=== PATIENT | male | born 1965 | race Caucasian/White ===

== ENCOUNTER 2017-06-11 20:35 | Observation (INO) | payer OTHER ==
[~2017-06-11] VITALS: Ht 182.9 cm; Wt 103.4 kg
[2017-06-11 20:52] VITALS: BP 138/71; PULSE 101; RESP 12; TEMP 98.7; O2SAT 95
[2017-06-11 21:30] VITALS: BP 110/55; PULSE 97; RESP 17; O2SAT 99
[2017-06-11] MEDS ORDERED: SODIUM CHLOR 0.9% 1000 ML INJ 1,000 ML IV ONE (22:21)
[2017-06-11 22:28] VITALS: BP 125/76; PULSE 85; RESP 18; O2SAT 97
[2017-06-11] MEDS ORDERED: ONDANSETRON HCL 4 MG/2 ML VIAL IVP ONE (22:30)
[2017-06-11] MEDS ORDERED: SODIUM CHLORIDE 0.9% FLUSH 10 ML FLUSH IVF PRN (22:30)
[2017-06-11] MEDS ORDERED: ACETAMINOPHEN 325 MG TAB PO ONE (22:30)
[2017-06-11] MEDS ORDERED: MECLIZINE HCL 25 MG TAB PO ONE (22:30)
[2017-06-11 23:06] LABS: AUTOMATED NEUTROPHIL # 4.5 TH/MM3 (1.8-7.7); BASOPHIL # 0.1 TH/MM3 (0-0.2); BASOPHIL % 1.1 % (0.0-2.0); EOSINOPHIL # 0.1 TH/MM3 (0-0.4); EOSINOPHIL % 1.6 % (0.0-4.0); HEMATOCRIT 43.8 % (39.0-51.0); HEMO FLAGS DIFF FINAL; LYMPH % 40.2 % (9.0-44.0); LYMPHOCYTE # 3.6 TH/MM3 (1.0-4.8); MEAN CELL VOLUME 93.6 FL (80.0-100.0); MEAN CORPUSCULAR HEMOGLOBIN 31.7 PG (27.0-34.0); MEAN CORPUSCULAR HGB CONC 33.9 % (32.0-36.0); MONO % 7.6 % (0.0-8.0); NEUT % 49.5 % (16.0-70.0); PLATELET COUNT 248 TH/MM3 (150-450); RED BLOOD COUNT 4.68 MIL/MM3 (4.50-5.90); RED CELL DISTRIBUTION WIDTH 14.5 % (11.6-17.2)
--- NOTE | 2017-06-11 23:14 | RADRPT ---
EXAM DATE/TIME: 06/11/2017 22:40 [facility] COMPARISON: No previous studies available for comparison. INDICATIONS : Shortness of breath. MEDICAL HISTORY : None. SURGICAL HISTORY : None. ENCOUNTER: Initial ACUITY: 1 day PAIN SCORE: 0/10 LOCATION: Bilateral chest FINDINGS: A single view of the chest demonstrates the lungs to be symmetrically aerated without evidence of mas s, infiltrate or effusion. There is minimal scarring and/or atelectasis at the left lung base. The ca rdiomediastinal contours are unremarkable. Osseous structures are intact. CONCLUSION: Minimal scarring and/or atelectasis at the left lung base. Garrett Moses MD on June 11, 2017 at 23:12 Board Certified Radiologist. This report was verified electronically.
[2017-06-11 23:16] LABS: CHLORIDE 108 MEQ/L (98-107); POTASSIUM 3.7 MEQ/L (3.5-5.1); SODIUM (NA) 142 MEQ/L (136-145)
[2017-06-11 23:20] LABS: ANION GAP 8 MEQ/L (5-15); BICARBONATE 25.6 MEQ/L (21.0-32.0); BLOOD UREA NITROGEN 13 MG/DL (7-18)
[2017-06-11 23:22] LABS: PROTHROMBIN TIME - PATIENT 10.6 SEC (9.8-11.6)
[2017-06-11 23:23] LABS: ALT (GPT) 20 U/L (12-78); AST (GOT) 14 U/L (15-37); GLOMERULAR FILTRATION RATE 80 ML/MIN (>89)
[2017-06-11 23:25] LABS: TOTAL BILIRUBIN ADULT 0.6 MG/DL (0.2-1.0)
[2017-06-11 23:26] LABS: ALKALINE PHOSPHATASE 158 U/L (45-117)
[2017-06-11 23:45] LABS: CREATINE KINASE 58 U/L (39-308)
[2017-06-11 23:50] VITALS: BP 100/71; PULSE 80; RESP 17; O2SAT 99
[2017-06-12] VITALS (13 sets, daily range): BP systolic 111–135; BP diastolic 68–93; PULSE 63–80; RESP 15–20; TEMP 96.2–98.2; O2SAT 94–100
--- NOTE | 2017-06-12 01:17 | RADRPT ---
EXAM DATE/TIME: 06/12/2017 00:52 [facility] COMPARISON: No previous studies available for comparison. INDICATIONS : Dizziness, near syncope. RADIATION DOSE: 66.89 CTDIvol (mGy) MEDICAL HISTORY : None SURGICAL HISTORY : None. ENCOUNTER: Initial ACUITY: 1 day PAIN SCALE: 0/10 LOCATION: cranial TECHNIQUE: Multiple contiguous axial images were obtained of the head. Using automated exposure control and adj ustment of the mA and/or kV according to patient size, radiation dose was kept as low as reasonably a chievable to obtain optimal diagnostic quality images. DICOM format image data is available electro nically for review and comparison. FINDINGS: CEREBRUM: The ventricles are normal for age. No evidence of midline shift, mass lesion, hemorrhage or acute in farction. No extra-axial fluid collections are seen. POSTERIOR FOSSA: The cerebellum and brainstem are intact. The 4th ventricle is midline. The cerebellopontine angle i s unremarkable. EXTRACRANIAL: The visualized portion of the orbits is intact. SKULL: The calvaria is intact. No evidence of skull fracture. CONCLUSION: Unremarkable noncontrast CT. Garrett Moses MD on June 12, 2017 at 1:15 Board Certified Radiologist. This report was verified electronically.
--- NOTE | 2017-06-12 01:57 | PD ---
HPI Chief Complaint: General Weakness Time Seen by Provider: 22:14 Travel History International Travel<30 days: No Contact w/Intl Traveler<30days: No Traveled to known affect area: No History of Present Illness HPI Patient is a 52-year-old male who comes in complaining of chest pain, headaches , dizziness. He says he has had the pain to his chest for the past 2 or 3 days. He says the pain has been coming and going. He says when it comes he feels like he has a lot of pressure on his chest. He says he's been having pain radiating up his neck into his head. His also been feeling dizzy and unsteady on his feet. He denies any shortness of breath. He denies nausea or vomiting. He denies fever or chills. PFSH Past Medical History Diminished Hearing: No Kidney Stones: Yes Ulcer: Yes Tetanus Vaccination: > 5 Years Influenza Vaccination: No Past Surgical History Appendectomy: Yes Cholecystectomy: Yes Social History Alcohol Use: No Tobacco Use: Yes (1 ppd) Substance Use: No Allergies-Medications (Allergen,Severity, Reaction): Coded Allergies: Egg Allergy (Verified Allergy, Severe, Swelling, 06/11/17) Milk (Verified Allergy, Severe, Swelling, 06/11/17) PEANUTS (Verified Allergy, Severe, Swelling, 06/11/17) Wheat (Verified Allergy, Severe, Swelling, 06/11/17) Reported Meds & Prescriptions Reported Meds & Active Scripts Active No Active Prescriptions or Reported Medications Review of Systems Except as stated in HPI: all other systems reviewed are Neg General / Constitutional: No: Fever, Chills Eyes: Positive: Blurred Vision HENT: Positive: Headaches, Lightheadedness Cardiovascular: Positive: Chest Pain or Discomfort Respiratory: No: Cough, Shortness of Breath Gastrointestinal: No: Nausea, Vomiting, Abdominal Pain Genitourinary: No: Dysuria Musculoskeletal: No: Myalgias, Edema Skin: No Rash, No Change in Pigmentation Neurologic: Positive: Dizziness Physical Exam Narrative GENERAL: Awake and alert, in no acute distress. SKIN: Focused skin assessment warm/dry. HEAD: Atraumatic. Normocephalic. EYES: Pupils equal and round. No scleral icterus. Extraocular movements intact , no nystagmus. ENT: Mucous membranes pink and moist. NECK: Trachea midline. No JVD. CARDIOVASCULAR: Regular rate and rhythm. No murmur appreciated. RESPIRATORY: No accessory muscle use. Clear to auscultation. Breath sounds equal bilaterally. GASTROINTESTINAL: Abdomen soft, non-tender, nondistended. MUSCULOSKELETAL: No obvious deformities. No clubbing. No cyanosis. No edema. NEUROLOGICAL: Awake and alert. No obvious cranial nerve deficits. Motor grossly within normal limits. Normal speech. PSYCHIATRIC: Appropriate mood and affect; insight and judgment normal. Data Data Last Documented VS Vital Signs Date Time Temp Pulse Resp B/P Pulse Ox O2 Delivery O2 Flow Rate FiO2 06/12/17 00:50 76 15 112/69 100 Room Air 06/11/17 20:52 98.7 Orders Electrocardiogram (06/11/17 21:10) Complete Blood Count With Diff (06/11/17 22:21) Comprehensive Metabolic Panel (06/11/17 22:21) Ckmb (Isoenzyme) Profile (06/11/17 22:21) Troponin I (06/11/17 22:21) Act Partial Throm Time (Ptt) (06/11/17 22:21) Prothrombin Time / Inr (Pt) (06/11/17 22:21) Chest, Single Ap (06/11/17 22:21) Ct Brain W/O Iv Contrast(Rout) (06/11/17 22:21) Ecg Monitoring (06/11/17 22:21) Iv Access Insert/Monitor (06/11/17 22:21) Oximetry (06/11/17 22:21) Ondansetron Inj (Zofran Inj) (06/11/17 22:30) Sodium Chloride 0.9% Flush (Ns Flush) (06/11/17 22:30) Sodium Chlor 0.9% 1000 Ml Inj (Ns 1000 M (06/11/17 22:21) Acetaminophen (Tylenol) (06/11/17 22:30) Meclizine (Antivert) (06/11/17 22:30) Admit Order (Ed Use Only) (06/12/17 ) Place In Observation (06/12/17 02:14) Activity Bed Rest With Brp (06/12/17 02:14) Vital Signs (Adult) Q4H (06/12/17 02:14) Cardiac Rhythm .As Directed (06/12/17 02:14) Notify Dr: Other .PRN (06/12/17 02:14) Notify Dr. Parameters (06/12/17 02:14) Resp Oxygen Nasal Cannula (06/12/17 ) Diet Npo (06/12/17 Breakfast) Ckmb (Isoenzyme) Profile (06/12/17 02:14) Ckmb (Isoenzyme) Profile (06/12/17 05:14) Troponin I (06/12/17 02:14) Troponin I (06/12/17 05:14) Electrocardiogram (06/12/17 02:14) Electrocardiogram (06/12/17 05:14) ^ Obtain (06/12/17 02:14) Sodium Chloride 0.9% Flush (Ns Flush) (06/12/17 02:15) Sodium Chloride 0.9% Flush (Ns Flush) (06/12/17 09:00) Safety Equipment Tester / Telemetry DARRON.Q8H (06/12/17 02:14) Labs Laboratory Tests Test 06/11/17 21:37 White Blood Count 9.0 TH/MM3 Red Blood Count 4.68 MIL/MM3 Hemoglobin 14.9 GM/DL Hematocrit 43.8 % Mean Corpuscular Volume 93.6 FL Mean Corpuscular Hemoglobin 31.7 PG Mean Corpuscular Hemoglobin 33.9 % Concent Red Cell Distribution Width 14.5 % Platelet Count 248 TH/MM3 Mean Platelet Volume 6.8 FL Neutrophils (%) (Auto) 49.5 % Lymphocytes (%) (Auto) 40.2 % Monocytes (%) (Auto) 7.6 % Eosinophils (%) (Auto) 1.6 % Basophils (%) (Auto) 1.1 % Neutrophils # (Auto) 4.5 TH/MM3 Lymphocytes # (Auto) 3.6 TH/MM3 Monocytes # (Auto) 0.7 TH/MM3 Eosinophils # (Auto) 0.1 TH/MM3 Basophils # (Auto) 0.1 TH/MM3 CBC Comment DIFF FINAL Differential Comment Prothrombin Time 10.6 SEC Prothromb Time International 1.0 RATIO Ratio Activated Partial 31.0 SEC Thromboplast Time Sodium Level 142 MEQ/L Potassium Level 3.7 MEQ/L Chloride Level 108 MEQ/L Carbon Dioxide Level 25.6 MEQ/L Anion Gap 8 MEQ/L Blood Urea Nitrogen 13 MG/DL Creatinine 0.98 MG/DL Estimat Glomerular Filtration 80 ML/MIN Rate Random Glucose 123 MG/DL Calcium Level 8.8 MG/DL Total Bilirubin 0.6 MG/DL Aspartate Amino Transf 14 U/L (AST/SGOT) Alanine Aminotransferase 20 U/L (ALT/SGPT) Alkaline Phosphatase 158 U/L Total Creatine Kinase 58 U/L Troponin I LESS THAN 0.02 NG/ML Total Protein 6.6 GM/DL Albumin 3.1 GM/DL MDM Medical Decision Making Medical Screen Exam Complete: Yes Emergency Medical Condition: Yes Medical Record Reviewed: Yes Interpretation(s) ECG shows normal sinus rhythm at 90, no ST elevation or depression, normal intervals. Differential Diagnosis ACS versus NSTEMI versus STEMI versus vertigo versus dehydration Narrative Course Patient is a 51-year-old male who comes in complaining of chest pain with headache and dizziness. Exam shows no neurologic abnormalities. IV established , labs sent. Patient connected to the hospital monitor. Labs show no acute abnormalities, troponin is negative. CT head shows no acute abnormalities. Patient given aspirin. We'll be placed in chest pain center for further management. Diagnosis Primary Impression: Chest pain Qualified Code: R07.9 - Chest pain, unspecified type Admitting Information Admitting Physician Requests: Observation Scripts No Active Prescriptions or Reported Meds Condition: Stable Balbina Marinelli MD Jun 12, 2017 01:57
[2017-06-12] MEDS ORDERED: SODIUM CHLORIDE 0.9% FLUSH 10 ML FLUSH IV FLUSH PRN (02:15)
[2017-06-12] MEDS ORDERED: ASPIRIN 81 MG CHEW TAB CHEW ONE (02:30)
[2017-06-12 03:47] LABS: CREATINE KINASE 54 U/L (39-308)
[2017-06-12 07:24] LABS: CREATINE KINASE 49 U/L (39-308)
[2017-06-12] MEDS: SODIUM CHLORIDE 0.9% FLUSH 10 ML FLUSH IV FLUSH SCH ×2 (08:47→20:54)
--- NOTE | 2017-06-12 09:46 | HHI.HP ---
[facility] No Primary Care Physician Admission Diagnosis Chest Pain Diagnoses: (1) Chest pain Diagnosis: Principal Chief Complaint: Chest pain Travel History International Travel<30 Days: No Contact w/Intl Traveler <30 Da: No Traveled to Known Affected Are: No History of Present Illness Written by Ehsan Townsend, acting as scribe for Dr. Springer on 06/12/17 at 09: 37. 52 year-old male with no chronic medical illnesses who presented to hospital for evaluation of chest discomfort. Patient states that she's been experiencing chest discomfort over the last week. He describes it as an elephant sitting on his chest that last up to 15 minutes at a time. Patient states that he works outside, and he does appear in pain during exertion. Whenever he rested, the pain does improve. Patient developed a new type sensation yesterday with a stabbing type pain in the left sternal border with radiation of pain up his neck and into his head with associated dizziness. Because of that discomfort he came to the hospital for evaluation. Patient states that during his other episodes of chest discomfort he does get associated shortness of breath, denies any diaphoresis. Patient states that he has had stress test done in the past and he was told that it was positive. He states that he walked on the treadmill for approximately 1 minute and told that it was positive. He does not indicate that he had any further testing done. He thinks he may have been put on medication after that but he does not recall. Patient indicates that he has not had any other workup done after that "positive" stress test. Patient was recommended observation of the chest pain center. Review of Systems Constitutional: COMPLAINS OF: Dizziness Respiratory: COMPLAINS OF: Shortness of breath Cardiovascular: COMPLAINS OF: Chest pain, Lower Extremity Edema Except as stated in HPI: all other systems reviewed are Neg Past Family Social History Past Medical History Patient denies any previous medical history Past Surgical History Cholecystectomy Appendectomy Reported Medications Reported Meds & Active Scripts Active No Active Prescriptions or Reported Medications Allergies: Coded Allergies: Egg Allergy (Verified Allergy, Severe, Swelling, 06/11/17) Milk (Verified Allergy, Severe, Swelling, 06/11/17) PEANUTS (Verified Allergy, Severe, Swelling, 06/11/17) Wheat (Verified Allergy, Severe, Swelling, 06/11/17) Family History Reviewed and significant for heart disease. States that father had triple bypass surgery, another brother had bypass surgery, and his other brother with myocardial infarction Social History Patient continues smoke a pack a cigarettes a day since he was 14 years old. Denies any alcohol or illicit drugs Physical Exam Vital Signs Vital Signs Date Time Temp Pulse Resp B/P Pulse Ox O2 Delivery O2 Flow Rate FiO2 06/12/17 08:00 96.9 63 18 121/92 98 06/12/17 06:51 64 06/12/17 06:20 94 21 06/12/17 04:00 96.2 67 20 111/81 95 06/12/17 03:00 80 18 134/73 97 Room Air 06/12/17 02:00 98.2 66 18 125/68 99 Room Air 06/12/17 00:50 76 15 112/69 100 Room Air 06/11/17 23:50 80 17 100/71 99 Room Air 06/11/17 23:45 18 06/11/17 22:28 85 18 125/76 97 Room Air 06/11/17 22:20 06/11/17 21:30 97 17 110/55 99 Room Air 06/11/17 20:52 98.7 101 12 138/71 95 Physical Exam GENERAL: Well-developed, well-nourished, in no acute distress. alert and orientated HEENT: Head is normocephalic without any lesions or masses noted. Facial features are symmetric. Eyes: Pupils equal round reactive to light. Extraocular muscles are intact. Conjunctivae were clear. Oropharyngeal: Pharynx without any erythema edema. Tongue is midline without deviation. Buccal mucosa is moist without any masses or lesions NECK: Supple without any masses. Trachea midline no deviation. No JVD, no bruits are appreciated CARDIAC: Regular rhythm, regular rate. S1/S2 are heard. No murmurs gallops or rubs. LUNGS: Clear to auscultation bilaterally. No wheeze, rhonchi or rales. No use of accessory muscles on inspiration or expiration. ABDOMEN: Soft, nontender. Nondistended. Bowel sounds heard in all 4 quadrants. No organomegaly or masses. Negative rebound, negative guarding EXTREMITIES: No edema, pulses are equal bilaterally. No cyanosis or clubbing NEUROLOGY: Mood and affect appear appropriate. Cranial nerves II through XII grossly intact. Muscle strength 5/5 in upper and lower extremities bilaterally. Deep tendon reflexes are 2+ in upper and lower extremities bilaterally. Laboratory Laboratory Tests Test 06/11/17 06/12/17 06/12/17 21:37 03:13 05:10 White Blood Count 9.0 Red Blood Count 4.68 Hemoglobin 14.9 Hematocrit 43.8 Mean Corpuscular Volume 93.6 Mean Corpuscular Hemoglobin 31.7 Mean Corpuscular Hemoglobin 33.9 Concent Red Cell Distribution Width 14.5 Platelet Count 248 Mean Platelet Volume 6.8 Neutrophils (%) (Auto) 49.5 Lymphocytes (%) (Auto) 40.2 Monocytes (%) (Auto) 7.6 Eosinophils (%) (Auto) 1.6 Basophils (%) (Auto) 1.1 Neutrophils # (Auto) 4.5 Lymphocytes # (Auto) 3.6 Monocytes # (Auto) 0.7 Eosinophils # (Auto) 0.1 Basophils # (Auto) 0.1 CBC Comment DIFF FINAL Differential Comment Prothrombin Time 10.6 Prothromb Time International 1.0 Ratio Activated Partial 31.0 Thromboplast Time Sodium Level 142 Potassium Level 3.7 Chloride Level 108 Carbon Dioxide Level 25.6 Anion Gap 8 Blood Urea Nitrogen 13 Creatinine 0.98 Estimat Glomerular Filtration 80 Rate Random Glucose 123 Calcium Level 8.8 Total Bilirubin 0.6 Aspartate Amino Transf 14 (AST/SGOT) Alanine Aminotransferase 20 (ALT/SGPT) Alkaline Phosphatase 158 Total Creatine Kinase 58 54 49 Troponin I LESS THAN 0.02 LESS THAN 0.02 LESS THAN 0.02 Total Protein 6.6 Albumin 3.1 Result Diagram: 06/11/17213606/11/172136 Imaging Last Impressions Head CT 06/11/172220 Signed Impressions: Service Date/Time: Monday, June 12, 2017 00:52 - CONCLUSION: Unremarkable noncontrast CT. Garrett Moses MD Chest X-Ray 06/11/172220 Signed Impressions: Service Date/Time: Sunday, June 11, 2017 22:40 - CONCLUSION: Minimal scarring and/or atelectasis at the left lung base. Garrett Moses MD Assessment and Plan Assessment and Plan Chest pain Patient with increased risk factors to include age, male, tobacco use, family history heart disease Patient ruled out for acute coronary event with serial cardiac enzymes are normal, serial EKGs without any changes We'll pursue nuclear stress test, considering the patient states that he failed exercise stress test in the past Patient given aspirin emergency department DVT prevention Low risk, early ambulation Discharge disposition Discharge home in stable condition stress test is negative Activity: Ad daniel. Diet: Healthy heart diet Medications per medication reconciliation Follow-up primary medical doctor one week Discussed Condition With This note was transcribed by juan Townsend. I, Dr. Garrett Springer personally performed the history, physical exam, and medical decision making; and confirmed the accuracy of the information in the transcribed note. Authenticated by Dr. Garrett Springer on 06/12/17 at 09:37. Problem Qualifiers (1) Chest pain: Qualified Code: R07.9 - Chest pain, unspecified type Ehsan Townsend Jun 12, 2017 09:46 Garrett Springer DO Jun 12, 2017 13:45
[2017-06-12 10:52] LABS: AMPHETAMINE, URINE NEG (NEG); BARBITURATES, URINE NEG (NEG)
[2017-06-12 10:53] LABS: COCAINE, URINE NEG (NEG)
--- NOTE | 2017-06-12 12:27 | EKG ---
Date Performed: 06/11/2017 Time Performed: 21:10:23 PTAGE: 52 years EKG: Sinus rhythm POSSIBLE LEFT ATRIAL ENLARGEMENT MARKED LEFT AXIS DEVIATION ABNORMAL ECG NO PREVIOUS TRACING DOCTOR: Rolando Bates Interpretating Date/Time 06/12/2017 12:25:19
[2017-06-12] MEDS ORDERED: REGADENOSON INJ 0.4 MG/5 ML SYR IV ONE (12:32)
--- NOTE | 2017-06-12 13:34 | RADRPT ---
EXAM DATE/TIME: 06/12/2017 12:20 [facility] COMPARISON: No previous studies available for comparison. INDICATIONS : Mid chest pain for one week with dizziness. Angina. DOSE: 35.0 mCi Tc99m Myoview at stress. 11.0 mCi Tc99m Myoview at rest. 0.4 mg Lexiscan STRESS SYMPTOMS: Shortness of breath. EJECTION FRACTION: 41% MEDICAL HISTORY : None SURGICAL HISTORY : Appendectomy. Cholecystectomy. ENCOUNTER: Initial ACUITY: 1 week PAIN SCALE: 5/10 LOCATION: Midsternal chest TECHNIQUE: The patient underwent pharmacologic stress with infusion of prescribed dose. Continuous ECG tracing was monitored during stress. Gated SPECT imaging was performed after stress and conventional SPECT i maging was performed at rest. The examination was performed on a SPECT/CT scanner, both attenuation and non-corrected datasets were reviewed. FINDINGS: DISTRIBUTION: The maximum perfused segment at stress is in the anterolateral wall. PERFUSION STUDY: The pattern of perfusion at stress is within normal limits. No fixed or reversible perfusion defect i s identified. GATED STUDY: There is intact wall motion and thickening without hypokinetic or dyskinetic segments. CONCLUSION: 1. No fixed or small perfusion defect is identified. Left ventricle perfusion is within normal limits . 2. No focal wall motion abnormality is identified. However, the left ventricle ejection fraction is r educed at 41%. RISK CATEGORY: Intermediate (1-3% Annual Mortality Rate) Amadou Chávez MD on June 12, 2017 at 13:28 Board Certified Radiologist. This report was verified electronically.
--- NOTE | 2017-06-12 14:04 | EKG ---
Date Performed: 06/12/2017 Time Performed: 06:21:33 PTAGE: 52 years EKG: Sinus rhythm BORDERLINE LEFT AXIS DEVIATION Since previous tracing, no significant change noted BORDERLINE ECG PREVIOUS TRACING : 06/12/2017 02.56 DOCTOR: Rolando Bates Interpretating Date/Time 06/12/2017 14:03:54
--- NOTE | 2017-06-12 14:39 | EKG ---
Date Performed: 06/12/2017 Time Performed: 02:56:38 PTAGE: 52 years EKG: Sinus rhythm BORDERLINE LEFT AXIS DEVIATION BORDERLINE ECG Compared to prior tracing no significant change PREVIOUS TRACING : 06/11/2017 21.10 DOCTOR: Rolando Bates Interpretating Date/Time 06/12/2017 14:37:29
--- NOTE | 2017-06-12 18:04 | TR ---
Date Performed: 06/12/2017 Time Performed: 12:43:53 DOCTOR: Brittany Donahue DRUG LIST: CLINICAL HISTORY: ANGINA REASON FOR TEST: Angina REASON FOR ENDING: OBSERVATION: CONCLUSION: Lexiscan stress test was performed under standard four minute protocol. Radionuclid e was injected one minute prior to ending the test. No electrocardiographic abormalities were present to suggest ischemia. Nuclear imaging and interpretation are pending. COMMENTS:
[2017-06-12 18:12] LABS: HDL CHOLESTEROL 40.3 MG/DL (40.0-60.0); LDL CHOLESTEROL 151 MG/DL (0-99)
[2017-06-12 22:24] LABS: HEMOGLOBIN A1a 1.2 %; HEMOGLOBIN A1b 0.9 %; HEMOGLOBIN Ao 85.2 %; HEMOGLOBIN F 1.3 %; HEMOGLOBIN LA1C 1.6 %; HEMOGLOBIN P3 3.5 %
[2017-06-13] VITALS: BP 124/79; PULSE 69; RESP 20; TEMP 96.7; O2SAT 96
[2017-06-13 08:00] VITALS: BP 122/81; PULSE 62; RESP 18; TEMP 97.1; O2SAT 96
[2017-06-13 08:20] VITALS: PULSE 63
[2017-06-13] MEDS: SODIUM CHLORIDE 0.9% FLUSH 10 ML FLUSH IV FLUSH SCH (08:25)
[2017-06-13 12:00] VITALS: BP 137/89; PULSE 78; RESP 18; TEMP 97; O2SAT 96
--- NOTE | 2017-06-13 12:29 | ECHRPT ---
Indication: Other cardiomyopathies CONCLUSIONS Normal left ventricular size. Wall thickness is normal. The left ventricular systolic function is low normal with an estimated ejection fraction in the rang e of 50- 55%. No regional wall motion abnormalities are present. Trace tricuspid regurgitation. The estimated pulmonary arterial pressure is 24 mmHg. BP: / HR: Rhythm: Sinus MEASUREMENTS (Male / Female) Normal Values Technical Quality:Good 2D ECHO LV Diastolic Diameter PLAX 4.5 cm 4.2 - 5.9 / 3.9 - 5.3 cm LV Systolic Diameter PLAX 3.4 cm IVS Diastolic Thickness 1.0 cm 0.6 - 1.0 / 0.6 - 0.9 cm LVPW Diastolic Thickness 0.7 cm 0.6 - 1.0 / 0.6 - 0.9 cm LV Relative Wall Thickness 0.4 LA Systolic Diameter LX 3.4 cm 3.0 - 4.0 / 2.7 - 3.8 cm M-MODE Aortic Root Diameter MM 3.3 cm AV Cusp Separation MM 2.2 cm DOPPLER AV Peak Velocity 111.0 cm/s AV Peak Gradient 4.9 mmHg LVOT Peak Velocity 86.4 cm/s LVOT Peak Gradient 3.0 mmHg Mitral E Point Velocity 70.1 cm/s Mitral A Point Velocity 64.7 cm/s Mitral E to A Ratio 1.1 TR Peak Velocity 185.0 cm/s TR Peak Gradient 13.7 mmHg FINDINGS LEFT VENTRICLE Normal left ventricular size. Wall thickness is normal. The left ventricular systolic function is low normal with an estimated ejection fraction in the rang e of 50- 55%. No regional wall motion abnormalities are present. RIGHT VENTRICLE Normal right ventricular size and systolic function. LEFT ATRIUM The left atrial size is normal. RIGHT ATRIUM The right atrial size is normal. ATRIAL SEPTUM Normal atrial septal thickness without atrial level shunting by limited color doppler interrogation. AORTA The aortic root and proximal ascending aorta are normal in size on limited imaging. MITRAL VALVE Structurally normal mitral valve. No mitral valve stenosis or regurgitation. AORTIC VALVE Trileaflet aortic valve. No aortic valve stenosis or regurgitation. TRICUSPID VALVE The estimated pulmonary arterial pressure is 24 mmHg. Trace regurgitation. PULMONARY VALVE The pulmonary valve is not well visualized. VESSELS The inferior vena cava is normal in size. PERICARDIUM No pericardial effusion. Arnav Rabago MD (Electronically Signed) Final Date:13 June 2017 12:28
--- NOTE | 2017-06-13 12:41 | HHI.DCPOC ---
Discharge Care Plan Diagnosis: (1) Chest pain Goals to Promote Your Health * To prevent worsening of your condition and complications * To maintain your health at the optimal level Directions to Meet Your Goals Take your medications as prescribed Follow your dietary instruction Follow activity as directed Keep your appointments as scheduled Take your immunizations and boosters as scheduled If your symptoms worsen call your PCP, if no PCP go to Urgent Care Center or Emergency Room Smoking is Dangerous to Your Health. Avoid second hand smoke Call the 24-hour hour crisis hotline for domestic abuse at Berenice Guerrero MD Jun 13, 2017 12:41
--- NOTE | 2017-06-13 13:16 | HHI.DS ---
Discharge Summary Admission Date Jun 12, 2017 at 02:17 Discharge Date: Jun 13, 2017 Admitting Diagnosis Chest Pain (1) Chest pain ICD Code: R07.9 Diagnosis: Principal Procedures ST, echo Brief History - From Admission Written by Ehsan Townsend, acting as scribe for Dr. Springer on 06/12/17 at 09: 37. 52 year-old male with no chronic medical illnesses who presented to hospital for evaluation of chest discomfort. Patient states that she's been experiencing chest discomfort over the last week. He describes it as an elephant sitting on his chest that last up to 15 minutes at a time. Patient states that he works outside, and he does appear in pain during exertion. Whenever he rested, the pain does improve. Patient developed a new type sensation yesterday with a stabbing type pain in the left sternal border with radiation of pain up his neck and into his head with associated dizziness. Because of that discomfort he came to the hospital for evaluation. Patient states that during his other episodes of chest discomfort he does get associated shortness of breath, denies any diaphoresis. Patient states that he has had stress test done in the past and he was told that it was positive. He states that he walked on the treadmill for approximately 1 minute and told that it was positive. He does not indicate that he had any further testing done. He thinks he may have been put on medication after that but he does not recall. Patient indicates that he has not had any other workup done after that "positive" stress test. Patient was recommended observation of the chest pain center. CBC/BMP: 06/11/17213606/11/172136 Significant Findings Laboratory Tests Test 06/11/17 06/12/17 06/12/17 21:37 03:13 05:10 Mean Platelet Volume 6.8 FL (7.0-11.0) Activated Partial 31.0 SEC Thromboplast Time (24.3-30.1) Chloride Level 108 MEQ/L (98-107) Estimat Glomerular Filtration 80 ML/MIN (>89) Rate Random Glucose 123 MG/DL (74-106) Aspartate Amino Transf 14 U/L (15-37) (AST/SGOT) Alkaline Phosphatase 158 U/L (45-117) Troponin I LESS THAN 0.02 LESS THAN 0.02 LESS THAN 0.02 NG/ML NG/ML NG/ML (0.02-0.05) (0.02-0.05) (0.02-0.05) Albumin 3.1 GM/DL (3.4-5.0) Cholesterol Level 210 MG/DL (120-200) LDL Cholesterol 151 MG/DL (0-99) Imaging Last Impressions Myocardial Perfusion Scan Nuc Med 06/12/17 0000 Signed Impressions: Service Date/Time: Monday, June 12, 2017 12:20 - CONCLUSION: 1. No fixed or small perfusion defect is identified. Left ventricle perfusion is within normal limits. 2. No focal wall motion abnormality is identified. However, the left ventricle ejection fraction is reduced at 41%%. RISK CATEGORY: Intermediate (1-3%% Annual Mortality Rate) Amadou Chávez MD Head CT 06/11/172220 Signed Impressions: Service Date/Time: Monday, June 12, 2017 00:52 - CONCLUSION: Unremarkable noncontrast CT. Garrett Moses MD Chest X-Ray 06/11/172220 Signed Impressions: Service Date/Time: Sunday, June 11, 2017 22:40 - CONCLUSION: Minimal scarring and/or atelectasis at the left lung base. Garrett Moses MD PE at Discharge GENERAL: This is a well-nourished, well-developed patient, in no apparent distress. CARDIOVASCULAR: Regular rate and rhythm without murmurs, gallops, or rubs. RESPIRATORY: Clear to auscultation. Breath sounds equal bilaterally. No wheezes , rales, or rhonchi. GASTROINTESTINAL: Abdomen soft, non-tender, nondistended. Normal active bowel sounds MUSCULOSKELETAL: Extremities without clubbing, cyanosis, or edema. NEURO: Alert & Oriented x4 to person, place, time, situation. Moves all ext x4 Pt update on day of discharge No further chest pain patient seen in follow up for atypical CP Results discussed with patient Hospital Course Seen for atypical CP, ST neg but with abnormal ef, echo WNL patient d/cd home Pt Condition on Discharge: Good Discharge Disposition: Discharge Home Discharge Time: <= 30 minutes Discharge Instructions DIET: Follow Instructions for: As Tolerated, No Restrictions Activities you can perform: Regular-No Restrictions Berenice Guerrero MD Jun 13, 2017 13:16
== END 2017-06-13 13:51 | disposition home or self-care (01) ==
LOC: PHED 20:35 → PHEDA 06-12 02:17 → PH3A 06-12 03:21
PROVIDERS: ADMIT Hospitalist; ATTEND Hospitalist
DX: R07.89 Other chest pain (principal); Z82.49 Family history of ischemic heart disease and other diseases of the circulatory system; F17.210 Nicotine dependence, cigarettes, uncomplicated; R42 Dizziness and giddiness; R51 Headache; R53.1 Weakness
CPT/HCPCS: 70450; 71010; 78452; 80053; 80061; 80307; 82550; 83036; 84484; 85025; 85610; 85730; 93005; 93017; 93306; 96361; 96374; 99285; A9502; G0378; J2405; J2785; J7030

== ENCOUNTER 2017-09-12 08:45 | Emergency (ER) | payer OTHER ==
[~2017-09-12] VITALS: Ht 182.9 cm; Wt 106.0 kg
[~2017-09-12 08:45] MED LIST: ASPI1TAB57 PO; HYDR-2374 PO
[2017-09-12 09:05] VITALS: BP 119/90; PULSE 84; RESP 16; TEMP 98; O2SAT 97
--- NOTE | 2017-09-12 10:15 | PD ---
HPI . Right knee pain Chief Complaint: Musculoskeletal Complaint Time Seen by Provider: 09:24 Travel History International Travel<30 days: No Contact w/Intl Traveler<30days: No Traveled to known affect area: No History of Present Illness HPI 52-year-old male patient presents to emergency department for evaluation of right knee pain. The patient is maintaining the right knee in a slightly flexed position. Patient reports pain with full extension or full flexion. Patient has a pre-existing injury of the right knee that he was evaluated for one year ago with an ultrasound. Patient reports that there was ligamental tearing but due to insurance purposes they were going to be able to repair it. The patient reports that he has had pain in his knee subsequently but the pain is exacerbated. Patient denies any traumas or injuries to the right knee. Patient reports towards the end of the day yesterday he noticed himself walking with a limp due to the pain and when he woke up this morning felt like the pain was significantly increased to the point he used his mother's cane to make it to the emergency department this morning. 3 weeks ago the patient reports a mechanical fall that he was evaluated for facility 2 days ago. We found a left radial head fracture, applied a splint and sling and gave the patient a mandatory referral for orthopedics. When the patient arrived in a parking lot today he reports that he took off the splint and sling to come in to the emergency department. He has not wearing his splint or sling at this time. PFSH Past Medical History Arthritis: No Autoimmune Disease: No Cancer: No Cardiovascular Problems: No Cerebrovascular Accident: No Diminished Hearing: No Endocrine: No Gastrointestinal Disorders: Yes GERD: Yes Genitourinary: No Headaches: Yes Hiatal Hernia: Yes Immune Disorder: No Kidney Stones: Yes Musculoskeletal: Yes Neurologic: Yes Psychiatric: No Reproductive: No Respiratory: No Migraines: Yes Seizures: No Ulcer: Yes Past Surgical History Abdominal Surgery: Yes (cholecystectomy) Appendectomy: Yes Cardiac Surgery: No Cholecystectomy: Yes Ear Surgery: No Endocrine Surgery: No Eye Surgery: No Genitourinary Surgery: No Gynecologic Surgery: No Oral Surgery: No Thoracic Surgery: No Other Surgery: Yes Social History Alcohol Use: No Tobacco Use: Yes (1 ppd) Substance Use: No Allergies-Medications (Allergen,Severity, Reaction): Coded Allergies: egg (Verified Allergy, Severe, Swelling, 09/12/17) milk (Verified Allergy, Severe, Swelling, 09/12/17) peanut (Verified Allergy, Severe, Swelling, 09/12/17) wheat (Verified Allergy, Severe, Swelling, 09/12/17) barley (Verified Allergy, Unknown, 09/12/17) Reported Meds & Prescriptions Reported Meds & Active Scripts Active Reported Hydrocodone-Acetaminophen 10-300 Tab 1 Tab PO Q4H PRN Aspirin 81 (Aspirin) 81 Mg Tabdr 81 Mg PO DAILY Review of Systems Except as stated in HPI: all other systems reviewed are Neg Physical Exam Narrative GENERAL: Well-nourished, well-developed 52-year-old male patient in no acute distress. Nontoxic appearing. SKIN: Focused skin assessment warm/dry. HEAD: Normocephalic. Atraumatic. NECK: Supple, trachea midline. No JVD or lymphadenopathy. CARDIOVASCULAR: Regular rate and rhythm without murmurs, gallops, or rubs. Pedal pulse +2 bilaterally. Radial pulses +2 bilaterally. RESPIRATORY: Breath sounds equal bilaterally. No accessory muscle use. GASTROINTESTINAL: Abdomen soft, non-tender, nondistended. MUSCULOSKELETAL: Mild right knee edema on the inner anterolateral aspect of the knee. Limited range of motion with extension of the left elbow. Pain with palpation of the left elbow. No obvious deformity, cyanosis, or ecchymosis. BACK: Nontender without obvious deformity. No CVA tenderness. Data Data Last Documented VS Vital Signs Date Time Temp Pulse Resp B/P (MAP) Pulse Ox O2 Delivery O2 Flow Rate FiO2 09/12/17 09:05 98.0 84 16 119/90 (100) 97 Orders Orders Ice/Cold Pack (09/12/17 09:35) Splint Or Brace Apply/Monitor (09/12/17 09:42) Knee, Complete (4vws) (09/12/17 09:42) MDM Medical Decision Making Medical Screen Exam Complete: Yes Emergency Medical Condition: Yes Differential Diagnosis Differential diagnoses include but not limited to osteoarthritis, ligamental damage, knee contusion, knee effusion, knee sprain Narrative Course 52-year-old male patient presents emergency department for evaluation of right knee pain. Patient was seen here 2 days ago for a fall that was 3 weeks ago. After the fall 3 weeks ago patient had pain in his left elbow with limited range of motion with extension. X-ray showed a radial head fracture and a splint and sling were applied and the patient was given a mandatory referral for orthopedics. Patient has not seen orthopedics and they have not contacted him. During this visit we contacted orthopedics and scheduled an appointment for tomorrow morning at 9:30. Dr. Jaquez recommends we not replace the splint but well with the patient in a sling until his appointment tomorrow morning. Sling will be applied to the left arm. Right knee x-ray ordered and pending. Ice applied to right knee. X-ray of the right knee shows degenerative changes with recommendation of an MRI to exclude any internal derangement. MRI can be scheduled electively. The patient has an orthopedic appointment tomorrow for follow-up with his radial head fracture. We'll recommend that the patient discuss the right knee findings with his orthopedist tomorrow at the appointment. Smith wrap will be applied to right knee. Patient will be given an IM injection of Toradol for pain relief and discharged home. Last Impressions Knee X-Ray 09/12/17 0942 Signed Impressions: Service Date/Time: Sunday, September 12, 2017 09:56 - CONCLUSION: Degenerative changes as described above. MRI may be of benefit to exclude internal derangement. This can be scheduled electively. Medardo Hurtado MD FACR Diagnosis Primary Impression: Knee pain Qualified Codes: M25.561 - Pain in right knee; G89.29 - Other chronic pain Referrals: [facility] Patient Instructions: General Instructions, Knee Pain (ED) Additional Instructions: Please return to emergency department if your symptoms return or worsen. Smith wrap to right knee with activity. Plan ice right knee to help with pain and swelling. Elevate right knee when resting. Keep the orthopedic appointment tomorrow at 9:30. Plan to arrive 15-20 minutes early. Discussed the right knee findings with orthopedist tomorrow Take ibuprofen to help with pain and swelling. Disposition: 01 DISCHARGE HOME Condition: Stable Balbina Morales Luanne NARAYANAN Sep 12, 2017 10:15
--- NOTE | 2017-09-12 10:29 | RADRPT ---
EXAM DATE/TIME: 09/12/2017 09:56 [facility] COMPARISON: No previous studies available for comparison. INDICATIONS : Right medial knee pain and burning, no known injury. MEDICAL HISTORY : Rt knee injury SURGICAL HISTORY : None. ENCOUNTER: Initial ACUITY: 2 days PAIN SCORE: 10/10 LOCATION: Right medial knee FINDINGS: Mild degenerative changes are noted without joint effusion or fracture. The most significant degener ative changes are in the medial compartment. CONCLUSION: Degenerative changes as described above. MRI may be of benefit to exclude internal derangement. Thi s can be scheduled electively. Medardo Hurtado MD FACR on September 12, 2017 at 10:26 Board Certified Radiologist. This report was verified electronically.
[2017-09-12] MEDS ORDERED: KETOROLAC TROMETHAMINE 30 MG/ML (IVP) VIAL IV PUSH ONE (11:00)
[2017-09-12] MEDS ORDERED: KETOROLAC TROMETHAMINE 60 MG/2 ML (IM) VIAL IM ONE (11:15)
== END 2017-09-12 11:32 | disposition home or self-care (01) ==
LOC: PHEFT 08:45
DX: M25.561 Pain in right knee (principal); G89.29 Other chronic pain; F17.200 Nicotine dependence, unspecified, uncomplicated
CPT/HCPCS: 73564; 96372; 99284; J1885